=== PATIENT | female | born 1980 | race Caucasian/White ===

== ENCOUNTER 2017-02-02 17:10 | Emergency (ER) | payer SELFPAY ==
[~2017-02-02] VITALS: Ht 170.2 cm; Wt 60.0 kg
[~2017-02-02 17:10] MED LIST: CHLO25 PO; DIAZ5 PO; METH10TA PO; XANA1TAB6 PO
[2017-02-02 17:13] VITALS: BP 156/88; PULSE 75; RESP 16; TEMP 98.3; O2SAT 98
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
[2017-02-02] MEDS ORDERED: NON-500T13 PO (17:51)
[2017-02-02] MEDS ORDERED: PENI500T PO (17:51)
[2017-02-02] MEDS ORDERED: IBUP-232 PO (17:51)
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
== END 2017-02-02 18:23 | disposition home or self-care (01) ==
LOC: NEPK 17:10
DX: K04.7 Periapical abscess without sinus (principal); F17.210 Nicotine dependence, cigarettes, uncomplicated; F14.10 Cocaine abuse, uncomplicated; F11.20 Opioid dependence, uncomplicated; F41.9 Anxiety disorder, unspecified; W22.8XXA Striking against or struck by other objects, initial encounter; Y93.9 Activity, unspecified; Y92.9 Unspecified place or not applicable; Y99.9 Unspecified external cause status
CPT/HCPCS: 99283